=== PATIENT | male | born 1980 | race Caucasian/White ===

== ENCOUNTER 2021-11-26 11:38 | Observation (INO) ==
[2021-11-26] MEDS ORDERED: ASPIRIN 325 MG TABLET PO STA (11:50)
[2021-11-26 12:14] LABS: Basophils # 0.1 10*3/uL (0.0-0.2); Basophils % 1.5 % (0.0-0.8); Eosinophils # 0.1 10*3/uL (0.0-0.87); Eosinophils % 2.7 % (0.00-10.9); Hematocrit 43.3 VOL% (42.0-52.0); Hemoglobin 14.4 GM/DL (14.0-18.0); Immature Granulocytes % 0.2 %; Immature Granulocytes Absolute 0.01 #; Lymphocytes # 2.1 10*3/uL (1.4-4.0); Lymphocytes % 40.5 % (21.2-54.2); Mean Corpuscular HGB Conc 33.3 GM/DL (32-36); Mean Corpuscular Volume 91.4 FL (87-102); Mean Platelet Volume 11.7 FL (9.6-12.0); Monocytes # 0.5 10*3/uL (0.11-0.8); Monocytes % 10.3 % (1.7-12.7); Neutrophils % 44.8 % (38.7-73.9); Platelet Count 222 T/CUMM (130-400); Red Blood Count 4.74 MC/CUMM (3.8-5.5); Red Cell Distribution Width 12.7 % (9.3-17.3); White Blood Count 5.2 T/CUMM (4-12)
[2021-11-26 12:46] LABS: Alanine Aminotransferase 29 U/L (16-61); Albumin 4.2 G/DL (3.4-5.0); Alkaline Phosphatase 92 U/L (45-117); Aspartate Amino Transferase 17 U/L (0-37); Bilirubin,Total < 0.39 MG/DL (0.20-1.00); Blood Urea Nitrogen 17 MG/DL (7-18); Calcium 9.1 MG/DL (8.5-10.1); Carbon Dioxide 29 MMOL/L (21-32); Chloride 107 MMOL/L (98-107); Glucose 89 MG/DL (74-106); Osmolality,Calculated 281.3 MOS/KG (273-304); Potassium 4.1 MMOL/L (3.5-5.1); Sodium 141 MMOL/L (136-145); Total Protein 7.2 G/DL (6.4-8.2)
[2021-11-26] MEDS ORDERED: MORPHINE 2 MG/1 ML SYRINGE IV PRN (15:58)
[2021-11-26] MEDS ORDERED: NITROGLYCERIN SL 0.4 MG TABLET SL PRN (15:58)
[2021-11-26] MEDS ORDERED: ONDANSETRON 4 MG/2 ML VIAL IV PRN (15:58)
[2021-11-26] MEDS ORDERED: ACETAMINOPHEN 325 MG TABLET PO PRN (15:58)
[2021-11-26 16:15] VITALS: BP 131/84
[2021-11-26] MEDS ORDERED: hydrALAZINE 20 MG/1 ML VIAL IV PRN (16:44)
[2021-11-26] MEDS ORDERED: DOCUSATE SODIUM 100 MG CAPSULE PO SCH (21:00)
[2021-11-27] MEDS ORDERED: PANTOPRAZOLE 40 MG TABLET PO SCH (09:00)
== END 2021-11-26 20:05 | disposition home or self-care (01) ==
LOC: N.3E 11:38 → N.ED 11:38 → N.3E 16:03
PROVIDERS: ADMIT Family Medicine; ATTEND Family Medicine